=== PATIENT | female | born 1985 | race Hispanic/Latino ===

== ENCOUNTER 2019-07-21 09:51 | Day surgery (SDC) | payer OTHER ==
[~2019-07-21] VITALS: Ht 154.9 cm; Wt 60.5 kg
[2019-07-21] MEDS ORDERED: LR 1,000 ML IV ONE (11:15)
[2019-07-21 11:23] LABS: URINE PREG TEST NEGATIVE (NEGATIVE)
[2019-07-21] MEDS ORDERED: dexameTHASONE 4 MG/ML 1ML VIAL (J1100) IV ONE (12:00)
[2019-07-21] MEDS ORDERED: LIDOCAINE W/EPINEPHRINE 1% 20ML VIAL As Ordered ONE (12:31)
[2019-07-21] MEDS ORDERED: EPINEPHrine 1MG/ML INJ 30ML MD-VIAL As Ordered ONE (12:32)
[2019-07-21] MEDS ORDERED: METHYLENE BLUE 0.5% (5MG/ML) 10 ML AMP (PROVAYBLUE)(Q9968 PER 1MG) As Ordered ONE (12:33)
[2019-07-21] MEDS ORDERED: MIDAZOLAM INJ 2 MG/2 ML VIAL (J2250) As Ordered ONE (12:52)
[2019-07-21] MEDS ORDERED: ROCURONIUM BROMIDE 50 MG/5 ML VIAL As Ordered ONE (12:52)
[2019-07-21] MEDS ORDERED: LIDOCAINE 2% INJ 100 MG/5 ML SDV (FOR ANES.) As Ordered ONE (12:52)
[2019-07-21] MEDS ORDERED: ONDANSETRON 4MG/2ML VIAL (J2405) As Ordered ONE (12:52)
[2019-07-21] MEDS ORDERED: dexameTHASONE 4 MG/ML 1ML VIAL (J1100) As Ordered ONE (12:52)
[2019-07-21] MEDS ORDERED: PROPOFOL 200 MG/20 ML VIAL As Ordered ONE (12:52)
[2019-07-21] MEDS ORDERED: fentaNYL 100 MCG/2 ML INJECTION (J3010) As Ordered ONE ×2 (12:52→16:48)
[2019-07-21] MEDS ORDERED: SUCCINYLCHOLINE 100 MG/5 ML SYRINGE (J0330) As Ordered ONE (12:52)
[2019-07-21] MEDS ORDERED: ACETAMINOPHEN 1000MG 100ML IV BTL (OFIRMEV) (J0131 PER 10MG) As Ordered ONE (12:55)
[2019-07-21] MEDS: SODIUM CHLORIDE 0.9% NASAL GEL 15GM (AYR) As Ordered ONE ×2 (13:43→14:30)
[2019-07-21] MEDS ORDERED: ONDANSETRON 4MG/2ML VIAL (J2405) IV PRN (15:00)
[2019-07-21] MEDS ORDERED: METOCLOPRAMIDE INJ 10MG/2ML VIAL (J2765) IV PRN (15:00)
[2019-07-21] MEDS ORDERED: LR 1,000 ML IV SCH ×2 (15:00→16:00)
[2019-07-21] MEDS: oxyCODONE 5MG TAB PO PRN ×2 (15:45→16:15)
[2019-07-21] MEDS: MEPERIDINE INJ 25 MG/ML VIAL (J2175) IV PRN ×2 (15:45→15:50)
[2019-07-21] MEDS: fentaNYL 100 MCG/2 ML INJECTION (J3010) IV PRN ×8 (15:55→17:05)
[2019-07-21] MEDS ORDERED: AUGMENTIN 875 MG TAB PO ONE (16:00)
[2019-07-21] MEDS ORDERED: oxyCODONE 5MG TAB As Ordered ONE (16:12)
[2019-07-21 19:20] VITALS: BP 122/76
== END 2019-07-21 19:29 | disposition home or self-care (01) ==
LOC: M SDC 09:51
PROVIDERS: ATTEND Otolaryngology
DX: J34.2 Deviated nasal septum (principal); Z87.891 Personal history of nicotine dependence
CPT/HCPCS: 30520; 84703; 88300; J0131; J0330; J1100; J2175; J2250; J2405; J3010; Q9968

== ENCOUNTER → 2019-08-01 | Outpatient (REF) | payer OTHER ==
[2019-08-01 20:49] LABS: CHLAMYDIA DNA AMPLIFICATION NEGATIVE (NEGATIVE); GC DNA AMPLIFICATION NEGATIVE (NEGATIVE)
== END ==
LOC: M LAB REF 17:36
PROVIDERS: ATTEND Physician Assistant
DX: R30.0 Dysuria (principal)

== ENCOUNTER → 2019-08-02 | Outpatient (CLI) | payer OTHER ==
[2019-08-02 13:24] LABS: BASO % 0.3 % (0.0-1.0); EOS # 0.1 10^3/uL (0.0-0.5); EOS % 0.6 % (0.0-3.0); HEMATOCRIT 39.1 % (36.0-47.0); HEMOGLOBIN 12.6 g/dl (12.0-15.5); LYMPH # 2.7 10^3/uL (1.5-5.0); LYMPH % 34.4 % (24.0-44.0); MEAN CORPUSCULAR HEMOGLOBIN 25.7 pg (27.0-33.0); MEAN CORPUSCULAR HGB CONC 32.2 g/dl (32.0-36.5); MEAN CORPUSCULAR VOLUME 79.8 fl (80.0-96.0); MONO # 0.3 10^3/uL (0.0-0.8); MONO % 4.2 % (0.0-5.0); NEUTROPHILS # 4.7 10^3/uL (1.5-8.5); NEUTROPHILS % 60.1 % (36.0-66.0); PLATELET COUNT, AUTOMATED 225 10^3/uL (150-450); WHITE BLOOD COUNT 7.9 10^3/uL (4.0-10.0)
[2019-08-02 13:54] LABS: ALBUMIN 3.8 GM/DL (3.2-5.2); ALT/SGPT 67 U/L (12-78); BILIRUBIN,TOTAL 0.3 MG/DL (0.2-1.0); BLOOD UREA NITROGEN 10 MG/DL (7-18); CALCIUM LEVEL 9.1 MG/DL (8.5-10.1); CARBON DIOXIDE LEVEL 25 MEQ/L (21-32); CHLORIDE LEVEL 108 MEQ/L (98-107); CREATININE FOR GFR 0.59 MG/DL (0.55-1.30); FERRITIN 31 NG/ML (8-252); FREE T4 1.14 NG/DL (0.76-1.46); GLOMERULAR FILTRATION RATE > 60.0 (>60); GLUCOSE, FASTING 87 MG/DL (70-100); IRON (FE) 71 UG/DL (50-170); PERCENT SATURATION 19.9 % (13.2-45.0); POTASSIUM SERUM 3.8 MEQ/L (3.5-5.1); SODIUM LEVEL 140 MEQ/L (136-145); TOTAL IRON BINDING CAPACITY 356 UG/DL (250-450); TOTAL PROTEIN 7.5 GM/DL (6.4-8.2)
== END ==
LOC: M WUC 09:37
PROVIDERS: ATTEND Physician Assistant
DX: N94.6 Dysmenorrhea, unspecified (principal)

== ENCOUNTER → 2019-09-08 | Outpatient (REF) | payer OTHER | LOC: M LAB REF 16:51 | PROVIDERS: ATTEND Family Medicine | DX: N39.0 Urinary tract infection, site not specified (principal) ==

== ENCOUNTER → 2019-09-27 | Outpatient (REF) | payer OTHER | LOC: M LAB REF 16:59 | PROVIDERS: ATTEND Physician Assistant | DX: R10.2 Pelvic and perineal pain (principal) ==

== ENCOUNTER → 2019-10-14 | Outpatient (CLI) | payer OTHER ==
--- NOTE | 2019-10-14 13:02 | REP ---
PELVIC ULTRASOUND: Real-time sonographic evaluation of the pelvis performed utilizing transabdominal technique. Bladder measures 12.4 x 6.5 x 10.0 cm. Uterus measures 9.1 x 3.5 x 5.0 cm. Endometrial thickness is 7 mm. Right ovary measures 2.6 x 2.1 x 2.8 cm and left ovary 2.7 x 2.3 x 3.0 cm. Dominant follicle in the right ovary measures 1.8 x 1.5 x 1.7 cm and a dominant follicle in the left ovary 2.1 x 1.5 x 2.2 cm. There is no other evidence of adnexal mass or free fluid. There is no torsion, blood flow is seen in each ovary with duplex Doppler evaluation. IMPRESSION: There is a dominant follicle in each ovary. No other evidence of adnexal mass or free fluid. Electronically Signed by Bishnu Connors MD 10/17/2019 09:21 A
== END ==
LOC: M RAD 09:50
PROVIDERS: ATTEND Physician Assistant
DX: R10.2 Pelvic and perineal pain (principal)

== ENCOUNTER → 2019-12-19 | Outpatient (REF) | payer OTHER ==
[2019-12-19 15:47] LABS: CHLAMYDIA DNA AMPLIFICATION NEGATIVE (NEGATIVE); GC DNA AMPLIFICATION NEGATIVE (NEGATIVE)
== END ==
LOC: M SFHCWAGY 13:41
PROVIDERS: ATTEND Nurse Practitioner Family
DX: R10.2 Pelvic and perineal pain (principal)
CPT/HCPCS: 81002; 81025; 87491; 87591; 87624; G0123; G0463